=== PATIENT | female | born 1945 | race Caucasian/White ===

== ENCOUNTER 2022-02-02 20:21 | Emergency (ER) | payer MEDICARE, MEDICAID ==
[~2022-02-02] VITALS: Ht 160 cm; Wt 64.0 kg
[2022-02-03 09:23] LABS: BASOPHILS % 0.2 % (0.0-2.0); EOSINOPHILS % 2.9 % (0.0-5.0); HEMATOCRIT. 38.4 % (36.0-48.0); HEMOGLOBIN. 12.6 g/dL (12.0-16.0); LYMPHOCYTES % 7.2 % (20.0-50.0); MEAN CORPUSCULAR VOLUME 88.4 fL (81.0-99.0); MEAN PLATELET VOLUME 8.8 fl (7.4-10.4); MONOCYTES % 7.5 % (2.0-8.0); NEUTROPHILS % 82.2 % (40.0-76.0); PLATELET 214 x1000/uL (130-400); RED BLOOD CELL COUNT 4.34 mill/uL (4.2-5.4)
[2022-02-03 09:28] LABS: CHLORIDE 107 mEq/L (98-107)
[2022-02-03 12:25] VITALS: BP 134/87
== END 2022-02-03 12:26 | disposition home or self-care (01) ==
LOC: ER 20:21
DX: F41.0 Panic disorder [episodic paroxysmal anxiety] (principal); R07.89 Other chest pain; Z59.00 Homelessness unspecified; Z88.6 Allergy status to analgesic agent
CPT/HCPCS: 36415; 71045; 80053; 83880; 84484; 85025; 93005; 99285